=== PATIENT | female | born 1950 | race Caucasian/White ===

== ENCOUNTER → 2017-08-30 09:03 | Outpatient (CLI) | payer MEDICARE, BC ==
[2012-06-24 07:02] VITALS: BMI 21.9
[2017-08-30 10:00] LABS: BASOPHILS 0.6 % (0-2); EOSINOPHILS 2.8 % (0-7); HEMOGLOBIN 13.4 g/dL (12-16); IMMATURE GRANULOCYTES 0.3 % (0-5); LYMPHOCYTES 31.2 % (15-50); MCH 30.5 pg (26.0-34.0); MCHC 32.7 g/dL (31.0-37.0); MCV 93.4 fL (80.0-100.0); MONOCYTES 12.2 % (2-11); NEUTROPHILS 52.9 % (40-80); PLATELET COUNT 299 10x3/uL (130-400); RBC 4.39 10x6/uL (4.00-5.40); RDW 13.6 % (11.5-14.5); WBC 3.5 10x3/uL (4.8-10.8)
[2017-08-30 10:37] LABS: ANION GAP 13.5 mmol/L (8-16); BILIRUBIN - TOTAL 0.24 mg/dL (0.2-1.3); CALCIUM 9.5 mg/dL (8.5-10.1); CARBON DIOXIDE 28.7 mmol/L (21.0-32.0); CHOL - HDL RATIO 2.5 ratio (2.3-4.1); CREATININE - SERUM 0.9 mg/dL (0.6-1.3); LDL-HDL RATIO 1.4 ratio (1.5-3.5); POTASSIUM - SERUM 4.2 mmol/L (3.5-5.1); PROTEIN - SERUM 7.5 g/dL (6.4-8.2); THYROID STIMULATING HORMONE 2.28 uIU/mL (0.36-3.74)
== END | disposition home or self-care (01) ==
LOC: D.LABREF 09:03
PROVIDERS: Internal Medicine Gastroenterology
DX: E78.00 Pure hypercholesterolemia, unspecified (principal); R53.83 Other fatigue; R53.1 Weakness; Z85.3 Personal history of malignant neoplasm of breast

== ENCOUNTER → 2017-10-13 13:10 | Outpatient (CLI) | payer MEDICARE, BC ==
[2012-06-24 07:02] VITALS: BMI 21.9
== END | disposition home or self-care (01) ==
LOC: D.MAMMO 07:30
DX: Z85.3 Personal history of malignant neoplasm of breast (principal); Z12.31 Encounter for screening mammogram for malignant neoplasm of breast

== ENCOUNTER → 2020-06-24 17:03 | Outpatient (CLI) | payer MEDICARE, BC ==
[2012-06-24 07:02] VITALS: BMI 21.9
[2020-06-24 17:17] LABS: BASOPHILS 0.8 % (0-2); EOSINOPHILS 4.3 % (0-7); HEMATOCRIT 36.4 % (36.0-48.0); HEMOGLOBIN 11.6 g/dL (12-16); LYMPHOCYTES 24.2 % (15-50); MCH 30.1 pg (26.0-34.0); MCHC 31.9 g/dL (31.0-37.0); MCV 94.3 fL (80.0-100.0); MEAN PLATELET VOLUME 10.1 fL (7.4-10.4); MONOCYTES 9.7 % (2-11); PLATELET COUNT 267 10x3/uL (130-400); RBC 3.86 10x6/uL (4.00-5.40); RDW 13.5 % (11.5-14.5); WBC 5.1 10x3/uL (4.8-10.8)
[2020-06-24 18:01] LABS: ALBUMIN 3.9 g/dL (3.4-5.0); ANION GAP 11.9 mmol/L (8-16); BILIRUBIN - TOTAL 0.16 mg/dL (0.2-1.3); CALCIUM 8.7 mg/dL (8.5-10.1); CARBON DIOXIDE 27.3 mmol/L (21.0-32.0); CREATININE - SERUM 1.2 mg/dL (0.6-1.3); POTASSIUM - SERUM 4.2 mmol/L (3.5-5.1); PROTEIN - SERUM 7.3 g/dL (6.4-8.2); T4 THYROXINE 8.1 ug/dL (4.7-13.3)
== END | disposition home or self-care (01) ==
LOC: D.LAB 17:03
PROVIDERS: ATTEND Internal Medicine Gastroenterology
DX: R42 Dizziness and giddiness (principal); Z85.3 Personal history of malignant neoplasm of breast

== ENCOUNTER → 2020-07-18 14:10 | Outpatient (CLI) | payer MEDICARE, BC ==
[2012-06-24 07:02] VITALS: BMI 21.9
[2020-07-18 14:58] LABS: CALCIUM 8.3 mg/dL (8.5-10.1); CARBON DIOXIDE 29.5 mmol/L (21.0-32.0); CREATININE - SERUM 0.9 mg/dL (0.6-1.3); POTASSIUM - SERUM 4.5 mmol/L (3.5-5.1)
[2020-07-18 16:01] LABS: ERYTHROCYTE SEDIMENTATION RATE 13 mm/hr (0-30)
== END | disposition home or self-care (01) ==
LOC: D.LAB 14:10
PROVIDERS: ATTEND Internal Medicine Gastroenterology
DX: R55 Syncope and collapse (principal); R42 Dizziness and giddiness; M25.50 Pain in unspecified joint